=== PATIENT | male | born 1975 | race Caucasian/White ===

== ENCOUNTER 2019-10-27 21:32 | Inpatient (IN) | payer MEDICAID ==
[~2019-10-27] VITALS: Ht 188 cm; Wt 132.4 kg
[2019-10-27] MEDS ORDERED: normal saline 1000ML IV soln IV ONE (22:05)
[2019-10-27 22:54] LABS: EOSINOPHILS # (AUTO) 0.2 X10'3 (0-0.9); HEMOGLOBIN 8.9 g/dl (14.0-17.9); LYMPHOCYTES # (AUTO) 1.4 X10'3 (1.1-4.8); WHITE BLOOD COUNT 8.8 X10'3 (4.5-11.0)
[2019-10-27 22:55] LABS: BASOPHILS # (AUTO) 0.1 X10'3 (0-0.2); BASOPHILS % (AUTO) 1.4 % (0-1); HEMATOCRIT 25.4 % (42.0-52.0); MEAN CORPUSCULAR HGB CONC 35.1 g/dL (33.0-36.5); MEAN CORPUSCULAR VOLUME 108.3 FL (78-98); MEAN PLATELET VOLUME 8.8 FL (7.4-10.4); MONOCYTES % (AUTO) 11.5 % (2-12); NEUTROPHILS # (AUTO) 6.1 X10'3 (1.8-7.7); NEUTROPHILS % (AUTO) 69.1 % (42-75); PLATELET COUNT 258 X10'3 (140-440); RED BLOOD COUNT 2.34 X10'6 (4.70-6.10); RED CELL DISTRIBUTION WIDTH 14.3 % (11.5-14.5)
[2019-10-27 23:02] LABS: ALANINE AMINOTRANSFERASE 23 U/L (12-78); ALBUMIN 1.7 G/DL (3.4-5.0); ALBUMIN/GLOBULIN RATIO 0.3 (1.1-1.5); ALKALINE PHOSPHATASE 156 IU/L (46-116); ANION GAP 6 (8-16); ASPARTATE AMINO TRANSFERASE 59 U/L (10-37); BILIRUBIN,TOTAL 1.8 MG/DL (0.1-1.0); BLOOD UREA NITROGEN 11 MG/DL (7-18); BUN/CREATININE RATIO 7.1 (5.4-32.0); CALCIUM 7.7 MG/DL (8.5-10.1); CHLORIDE 98 MMOL/L (99-107); CREATININE 1.56 MG/DL (0.60-1.10); GLUCOSE 137 MG/DL (70-104); LIPASE 275 U/L (73-393); SODIUM 130 MMOL/L (135-145); TOTAL CARBON DIOXIDE 25.8 MMOL/L (24-32); TOTAL PROTEIN 7.9 G/DL (6.4-8.2); eGFR 48 ML/MIN
[2019-10-27] MEDS ORDERED: ondansetron/PF 4mg/2ml inj IV ONE (23:10)
[2019-10-27] MEDS ORDERED: AMLO5TAB PO (23:23)
[2019-10-27] MEDS ORDERED: OMEP40CA13 PO (23:29)
[2019-10-27] MEDS ORDERED: FURO-150 PO (23:29)
[2019-10-27] MEDS ORDERED: ASPI-611 PO (23:29)
[2019-10-27] MEDS ORDERED: IRBE150T51 PO (23:29)
[2019-10-27] MEDS ORDERED: TRAZ-256 PO (23:29)
[2019-10-27] MEDS ORDERED: pantoprazole IV 80 MG in normal saline 100ml IV soln 100 ML IV ONE (23:35)
[2019-10-27 23:39] LABS: PLATELET ESTIMATE NORMAL; TARGET CELLS 1+
[2019-10-27] MEDS ORDERED: pantoprazole IV 40 MG in normal saline 100ml IV soln 100 ML IV ONE (23:39)
[2019-10-27 23:40] LABS: ANISOCYTOSIS FEW; SPHEROCYTES FEW
[2019-10-27] MEDS: octreotide inj. 1,250 MCG in normal saline 250ml IV soln 250 ML IV SCH (23:57)
[2019-10-28] VITALS (12 sets, daily range): BP systolic 108–147; BP diastolic 55–90
[2019-10-28] MEDS: pantoprazole 40MG/NS 100ML BAG 100 ML IV SCH ×5 (01:00→20:45)
[2019-10-28 01:55] LABS: OCCULT BLOOD STOOL POSITIVE (Neg)
[2019-10-28 02:46] LABS: CLARITY,URINE CLEAR (Clear); GLUCOSE, URINE NEGATIVE (Neg); KETONES,URINE NEGATIVE (Neg); LEUKOCYTE ESTERASE ,URINE NEGATIVE (Neg); NITRITES, URINE NEGATIVE (Neg); OCCULT BLOOD,URINE NEGATIVE (Neg); PH,URINE 5.5 (4.8-8.0); PROTEIN,URINE NEGATIVE (Neg)
[2019-10-28 02:58] LABS: UA COLLECTION TYPE CLN CATCH MIDSTREAM
[2019-10-28 03:00] LABS: COLOR,URINE DARK YELLOW (Yellow)
[2019-10-28] MEDS ORDERED: ondansetron/PF 4mg/2ml inj IV PRN (03:25)
[2019-10-28] MEDS ORDERED: thiamine inj. 100 MG in normal saline 100ml IV soln 100 ML IV ONE ×2 (03:30→06:30)
[2019-10-28] MEDS: normal saline 1000ml 1,000 ML IV SCH ×3 (03:34→23:22)
[2019-10-28 07:16] LABS: HEMATOCRIT 25.9 % (42.0-52.0); HEMOGLOBIN 8.9 g/dl (14.0-17.9); MEAN CORPUSCULAR HEMOGLOBIN 36.8 PG (27.0-31.0); MEAN CORPUSCULAR HGB CONC 34.5 g/dL (33.0-36.5); MEAN CORPUSCULAR VOLUME 106.7 FL (78-98); MEAN PLATELET VOLUME 8.8 FL (7.4-10.4); PLATELET COUNT 228 X10'3 (140-440); RED BLOOD COUNT 2.43 X10'6 (4.70-6.10); RED CELL DISTRIBUTION WIDTH 15.6 % (11.5-14.5); WHITE BLOOD COUNT 8.6 X10'3 (4.5-11.0)
--- NOTE | 2019-10-28 08:15 | NUR ---
pt arrived to 4013A from ER. Oriented to room. Sandostatin gtt running. Protonix gtt started. Pt denies pain. c/o dry mouth and wanting to eat. Explained NPO status at this time, pt verbalized understanding. c/o some agitation and anxiety, pt states he just needs some rest for relief. Resting in bed currently with girlfriend at bedside.
[2019-10-28] MEDS: LORazepam 2 mg/ml vial IV PRN (10:14)
[2019-10-28] MEDS ORDERED: LIDOcaine Viscous 15ml cup ONE (12:35)
[2019-10-28] MEDS ORDERED: MIDAZolam 5mg/5ml vial ONE (12:35)
[2019-10-28] MEDS ORDERED: fentaNYL/PF 50MCG/1 ML 2ML syringe ONE (12:35)
--- NOTE | 2019-10-28 12:52 | NUR ---
Paged Dr. Burris - pt chews tobacco at home and requesting Nicotine patch please.
--- NOTE | 2019-10-28 14:59 | NUR ---
pt transferred to 3021 from GI lab. Report called to ALICE Jones for continuation of care.
--- NOTE | 2019-10-28 15:00 | NUR ---
Received report from Shea on Ortho/Neuro, patient arrived from GI lab by sunny, transferred to PCU bed with assistance. Alert and oriented to room, call light within reach, first set of vital signs complete, 2 RN skin check complete, all patient needs met at this time.
[2019-10-28] MEDS ORDERED: pantoprazole 40MG/NS 100ML BAG 100 ML IV SCH ×3 (16:07→16:15)
[2019-10-28] MEDS: octreotide inj. 1,250 MCG in normal saline 250ml IV soln 250 ML IV SCH (16:17)
[2019-10-28 16:41] LABS: HEMATOCRIT 24.7 % (42.0-52.0); HEMOGLOBIN 8.7 g/dl (14.0-17.9); MEAN CORPUSCULAR HEMOGLOBIN 37.3 PG (27.0-31.0); MEAN CORPUSCULAR VOLUME 106.8 FL (78-98); MEAN PLATELET VOLUME 8.5 FL (7.4-10.4); PLATELET COUNT 237 X10'3 (140-440); RED BLOOD COUNT 2.32 X10'6 (4.70-6.10); RED CELL DISTRIBUTION WIDTH 15.3 % (11.5-14.5); WHITE BLOOD COUNT 8.2 X10'3 (4.5-11.0)
--- NOTE | 2019-10-28 18:40 | NUR ---
Problems reprioritized. Patient report given, questions answered & plan of care reviewed with Miko RN. All patient needs have been met at this time.
[2019-10-28] MEDS ORDERED: traZODone 50mg tablet PO SCH ×2 (21:00→23:05)
--- NOTE | 2019-10-28 21:57 | NUR ---
NOTIFIED PAGER ID: [phone] MESSAGE: Joel Ramos, 3025- pt refused 100mg dose of trazodone and requests 25mg dose. pt requests nicotine patch, melatonin for sleep, and medication for pain currently 03/17 in back. Miko JENKINS
[2019-10-28] MEDS: traZODone 50mg tablet PO SCH (23:05)
[2019-10-28 23:10] LABS: HEMATOCRIT 22.8 % (42.0-52.0); MEAN CORPUSCULAR HEMOGLOBIN 37.4 PG (27.0-31.0); MEAN CORPUSCULAR HGB CONC 34.9 g/dL (33.0-36.5); MEAN CORPUSCULAR VOLUME 107.2 FL (78-98); MEAN PLATELET VOLUME 8.9 FL (7.4-10.4); PLATELET COUNT 216 X10'3 (140-440); RED BLOOD COUNT 2.12 X10'6 (4.70-6.10); RED CELL DISTRIBUTION WIDTH 15.1 % (11.5-14.5); WHITE BLOOD COUNT 11.5 X10'3 (4.5-11.0)
[2019-10-28] MEDS: nicotine 14mg patch - 24hr TD SCH (23:19)
[2019-10-28] MEDS: acetaminophen 325mg tablet PO PRN (23:21)
[2019-10-28] MEDS: Melatonin 3mg tablet PO PRN (23:23)
[2019-10-29] VITALS (9 sets, daily range): BP systolic 105–125; BP diastolic 63–84
[2019-10-29] MEDS: pantoprazole 40MG/NS 100ML BAG 100 ML IV SCH ×5 (04:37→21:00)
[2019-10-29 05:49] LABS: BASOPHILS # (AUTO) 0.1 X10'3 (0-0.2); BASOPHILS % (AUTO) 1.2 % (0-1); EOSINOPHILS # (AUTO) 0.3 X10'3 (0-0.9); EOSINOPHILS % (AUTO) 3.3 % (0-6); HEMOGLOBIN 7.3 g/dl (14.0-17.9); LYMPHOCYTES # (AUTO) 1.7 X10'3 (1.1-4.8); LYMPHOCYTES % (AUTO) 19.5 % (21-51); MEAN CORPUSCULAR HEMOGLOBIN 37.5 PG (27.0-31.0); MEAN CORPUSCULAR HGB CONC 35.2 g/dL (33.0-36.5); MEAN CORPUSCULAR VOLUME 106.6 FL (78-98); MONOCYTES % (AUTO) 10.9 % (2-12); NEUTROPHILS # (AUTO) 5.7 X10'3 (1.8-7.7); NEUTROPHILS % (AUTO) 65.1 % (42-75); PLATELET COUNT 194 X10'3 (140-440); RED BLOOD COUNT 1.96 X10'6 (4.70-6.10); RED CELL DISTRIBUTION WIDTH 15.1 % (11.5-14.5); WHITE BLOOD COUNT 8.8 X10'3 (4.5-11.0)
[2019-10-29 05:52] LABS: HEMATOCRIT 20.9 % (42.0-52.0)
--- NOTE | 2019-10-29 05:57 | NUR ---
NOTIFIED PAGER ID: [phone] MESSAGE: Joel Ramos, 3020- critical value HCT 20.9, with HGB 7.3, RBC 1.96 Miko JENKINS
[2019-10-29 06:14] LABS: ALANINE AMINOTRANSFERASE 21 U/L (12-78); ALBUMIN 1.5 G/DL (3.4-5.0); ALBUMIN/GLOBULIN RATIO 0.3 (1.1-1.5); ALKALINE PHOSPHATASE 116 IU/L (46-116); ANION GAP 5 (8-16); ASPARTATE AMINO TRANSFERASE 50 U/L (10-37); BILIRUBIN,TOTAL 2.7 MG/DL (0.1-1.0); BLOOD UREA NITROGEN 11 MG/DL (7-18); BUN/CREATININE RATIO 7.7 (5.4-32.0); CALCIUM 7.3 MG/DL (8.5-10.1); CHLORIDE 103 MMOL/L (99-107); CREATININE 1.42 MG/DL (0.60-1.10); GLUCOSE 112 MG/DL (70-104); POTASSIUM 4.8 MMOL/L (3.5-5.1); SODIUM 135 MMOL/L (135-145); TOTAL CARBON DIOXIDE 26.7 MMOL/L (24-32); TOTAL PROTEIN 6.7 G/DL (6.4-8.2); eGFR 54 ML/MIN
--- NOTE | 2019-10-29 06:21 | NUR ---
Problems reprioritized. Patient report given, questions answered & plan of care reviewed with Brenda Orona RN.
--- NOTE | 2019-10-29 06:37 | NUR ---
Patient in room PCU 3021. I have received report from ALICE Crouch and had the opportunity to ask questions and assume patient care. Patient asleep in bed and in no acute distress.
--- NOTE | 2019-10-29 07:14 | NUR ---
Patient refused 0700 vitals.
[2019-10-29] MEDS: nicotine 14mg patch - 24hr TD SCH (08:00)
[2019-10-29] MEDS: acetaminophen 325mg tablet PO PRN ×2 (08:15→14:17)
--- NOTE | 2019-10-29 08:54 | NUR ---
Order edited for [email or web address] q5hr to be continuous per Dr. Burris.
[2019-10-29] MEDS: normal saline 1000ml 1,000 ML IV SCH ×2 (09:22→19:22)
--- NOTE | 2019-10-29 10:03 | NUR ---
Paged Dr. Burrsi for blood culture order. PAGER ID: [phone] MESSAGE: [phone]. Joel Ramos. Would you like for me to order blood cultures before giving rocephin? Thanks! Brenda JENKINS x [phone]
[2019-10-29 11:21] LABS: HEMOGLOBIN 7.4 g/dl (14.0-17.9); MEAN CORPUSCULAR HEMOGLOBIN 37.6 PG (27.0-31.0); MEAN CORPUSCULAR HGB CONC 35.1 g/dL (33.0-36.5); PLATELET COUNT 189 X10'3 (140-440); RED BLOOD COUNT 1.98 X10'6 (4.70-6.10); RED CELL DISTRIBUTION WIDTH 14.8 % (11.5-14.5); WHITE BLOOD COUNT 8.2 X10'3 (4.5-11.0)
[2019-10-29 11:23] LABS: HEMATOCRIT 21.2 % (42.0-52.0)
--- NOTE | 2019-10-29 11:26 | NUR ---
Paged Dr. Burris regarding critical lab values. PAGER ID: [phone] MESSAGE: [phone]. Joel Ramos. Critical lab Hgb 7.4, Hct 21.2. Blood transfusion in progress. Thank you. Brenda JENKINS x [phone]
[2019-10-29] MEDS: CefTRIAXone 2gm/D5W 50ml 50 ML IV SCH (14:18)
[2019-10-29 16:46] LABS: HEMATOCRIT 25.2 % (42.0-52.0); HEMOGLOBIN 8.8 g/dl (14.0-17.9); MEAN CORPUSCULAR HEMOGLOBIN 36.8 PG (27.0-31.0); PLATELET COUNT 203 X10'3 (140-440); RED CELL DISTRIBUTION WIDTH 17.3 % (11.5-14.5); WHITE BLOOD COUNT 9.8 X10'3 (4.5-11.0)
--- NOTE | 2019-10-29 18:33 | NUR ---
Problems reprioritized. Patient report given, questions answered & plan of care reviewed with ALICE Rosas. Patient stable at transfer of care.
--- NOTE | 2019-10-29 18:33 | NUR ---
Patient in room PCU 3021. I have received report from ALICE Gutierrez and had the opportunity to ask questions and assume patient care.
[2019-10-29] MEDS: LORazepam 2 mg/ml vial IV PRN (20:42)
[2019-10-29] MEDS: traZODone 50mg tablet PO SCH (21:00)
[2019-10-29 22:51] LABS: HEMATOCRIT 23.6 % (42.0-52.0); HEMOGLOBIN 8.4 g/dl (14.0-17.9); MEAN CORPUSCULAR HEMOGLOBIN 37.5 PG (27.0-31.0); MEAN CORPUSCULAR HGB CONC 35.6 g/dL (33.0-36.5); MEAN CORPUSCULAR VOLUME 105.3 FL (78-98); MEAN PLATELET VOLUME 9.1 FL (7.4-10.4); PLATELET COUNT 188 X10'3 (140-440); RED BLOOD COUNT 2.24 X10'6 (4.70-6.10); WHITE BLOOD COUNT 9.8 X10'3 (4.5-11.0)
[2019-10-30] VITALS (7 sets, daily range): BP systolic 119–128; BP diastolic 65–81
[2019-10-30] MEDS: pantoprazole 40MG/NS 100ML BAG 100 ML IV SCH ×5 (00:57→21:28)
[2019-10-30] MEDS: octreotide inj. 1,250 MCG in normal saline 250ml IV soln 250 ML IV SCH (00:58)
[2019-10-30] MEDS: normal saline 1000ml 1,000 ML IV SCH ×2 (00:58→15:25)
[2019-10-30] MEDS: acetaminophen 325mg tablet PO PRN ×4 (01:13→21:51)
[2019-10-30] MEDS ORDERED: LORazepam 2 mg/ml vial IV PRN (03:30)
[2019-10-30] MEDS ORDERED: LORazepam 1 MG tablet PO PRN (03:30)
[2019-10-30 05:39] LABS: BASOPHILS # (AUTO) 0.1 X10'3 (0-0.2); BASOPHILS % (AUTO) 1.1 % (0-1); EOSINOPHILS # (AUTO) 0.3 X10'3 (0-0.9); EOSINOPHILS % (AUTO) 3.5 % (0-6); HEMATOCRIT 22.9 % (42.0-52.0); LYMPHOCYTES # (AUTO) 1.4 X10'3 (1.1-4.8); LYMPHOCYTES % (AUTO) 14.6 % (21-51); MEAN CORPUSCULAR HEMOGLOBIN 36.5 PG (27.0-31.0); MEAN CORPUSCULAR HGB CONC 34.7 g/dL (33.0-36.5); MEAN CORPUSCULAR VOLUME 105.1 FL (78-98); MEAN PLATELET VOLUME 9.2 FL (7.4-10.4); MONOCYTES # (AUTO) 0.9 X10'3 (0-0.9); MONOCYTES % (AUTO) 8.8 % (2-12); NEUTROPHILS # (AUTO) 7.1 X10'3 (1.8-7.7); PLATELET COUNT 182 X10'3 (140-440); RED BLOOD COUNT 2.18 X10'6 (4.70-6.10); RED CELL DISTRIBUTION WIDTH 16.7 % (11.5-14.5); WHITE BLOOD COUNT 9.8 X10'3 (4.5-11.0)
[2019-10-30 05:50] LABS: ALANINE AMINOTRANSFERASE 17 U/L (12-78); ALBUMIN 1.4 G/DL (3.4-5.0); ALBUMIN/GLOBULIN RATIO 0.3 (1.1-1.5); ALKALINE PHOSPHATASE 110 IU/L (46-116); ANION GAP 6 (8-16); ASPARTATE AMINO TRANSFERASE 48 U/L (10-37); BILIRUBIN,TOTAL 2.4 MG/DL (0.1-1.0); BLOOD UREA NITROGEN 11 MG/DL (7-18); CALCIUM 7.2 MG/DL (8.5-10.1); CHLORIDE 106 MMOL/L (99-107); CREATININE 1.37 MG/DL (0.60-1.10); GLUCOSE 89 MG/DL (70-104); POTASSIUM 4.7 MMOL/L (3.5-5.1); SODIUM 138 MMOL/L (135-145); TOTAL CARBON DIOXIDE 25.9 MMOL/L (24-32); TOTAL PROTEIN 6.6 G/DL (6.4-8.2); eGFR 56 ML/MIN
--- NOTE | 2019-10-30 06:49 | NUR ---
Patient in room PCU 3021. I have received report from ALICE Gandhi and had the opportunity to ask questions and assume patient care.
--- NOTE | 2019-10-30 06:52 | NUR ---
Problems reprioritized. Patient report given, questions answered & plan of care reviewed with ALICE Clark. Patient stable at shift change.
[2019-10-30] MEDS: CefTRIAXone 2gm/D5W 50ml 50 ML IV SCH (07:22)
[2019-10-30] MEDS: nicotine 14mg patch - 24hr TD SCH (08:00)
--- NOTE | 2019-10-30 09:33 | NUR ---
New orders from Dr. Burris for a paracentesis, discontinue Shaheen and Protonix gtt after 48 hours and to switch Protonix gtt to 40mg PO BID
[2019-10-30 10:53] LABS: HEMATOCRIT 25.4 % (42.0-52.0); HEMOGLOBIN 8.7 g/dl (14.0-17.9); MEAN CORPUSCULAR HEMOGLOBIN 36.2 PG (27.0-31.0); MEAN CORPUSCULAR HGB CONC 34.4 g/dL (33.0-36.5); MEAN PLATELET VOLUME 8.9 FL (7.4-10.4); PLATELET COUNT 199 X10'3 (140-440); RED BLOOD COUNT 2.42 X10'6 (4.70-6.10); RED CELL DISTRIBUTION WIDTH 16.6 % (11.5-14.5); WHITE BLOOD COUNT 9.8 X10'3 (4.5-11.0)
[2019-10-30] MEDS: albumin (human) 25% 100 ML IV solution IV ONE ×2 (13:30→13:31)
[2019-10-30 17:14] LABS: HEMATOCRIT 24.8 % (42.0-52.0); HEMOGLOBIN 8.4 g/dl (14.0-17.9); MEAN CORPUSCULAR HEMOGLOBIN 35.7 PG (27.0-31.0); MEAN PLATELET VOLUME 9.2 FL (7.4-10.4); PLATELET COUNT 187 X10'3 (140-440); RED BLOOD COUNT 2.36 X10'6 (4.70-6.10); RED CELL DISTRIBUTION WIDTH 16.5 % (11.5-14.5); WHITE BLOOD COUNT 11.2 X10'3 (4.5-11.0)
--- NOTE | 2019-10-30 18:20 | NUR ---
Problems reprioritized. Patient report given, questions answered & plan of care reviewed with Miko RN.
--- NOTE | 2019-10-30 18:30 | NUR ---
Patient in room PCU 3021. I have received report from Amber JENKINS and had the opportunity to ask questions and assume patient care.
[2019-10-30] MEDS: traZODone 50mg tablet PO SCH (21:00)
[2019-10-30] MEDS: Melatonin 3mg tablet PO PRN (21:28)
[2019-10-30 22:55] LABS: HEMATOCRIT 22.3 % (42.0-52.0); HEMOGLOBIN 7.8 g/dl (14.0-17.9); MEAN CORPUSCULAR HGB CONC 35.2 g/dL (33.0-36.5); MEAN PLATELET VOLUME 9.1 FL (7.4-10.4); PLATELET COUNT 166 X10'3 (140-440); RED BLOOD COUNT 2.12 X10'6 (4.70-6.10); RED CELL DISTRIBUTION WIDTH 16.2 % (11.5-14.5); WHITE BLOOD COUNT 10.8 X10'3 (4.5-11.0)
[2019-10-31] MEDS: normal saline 1000ml 1,000 ML IV SCH ×2 (01:13→11:22)
[2019-10-31 02:00] VITALS: BP 117/66
[2019-10-31] MEDS: pantoprazole 40MG/NS 100ML BAG 100 ML IV SCH ×2 (04:24→08:05)
[2019-10-31 05:27] LABS: BASOPHILS # (AUTO) 0.1 X10'3 (0-0.2); BASOPHILS % (AUTO) 1.1 % (0-1); EOSINOPHILS # (AUTO) 0.3 X10'3 (0-0.9); EOSINOPHILS % (AUTO) 3.7 % (0-6); LYMPHOCYTES # (AUTO) 1.7 X10'3 (1.1-4.8); LYMPHOCYTES % (AUTO) 18.3 % (21-51); MEAN CORPUSCULAR HEMOGLOBIN 36.2 PG (27.0-31.0); MEAN CORPUSCULAR HGB CONC 34.5 g/dL (33.0-36.5); MEAN CORPUSCULAR VOLUME 104.9 FL (78-98); MEAN PLATELET VOLUME 9.3 FL (7.4-10.4); MONOCYTES # (AUTO) 0.7 X10'3 (0-0.9); MONOCYTES % (AUTO) 7.8 % (2-12); NEUTROPHILS # (AUTO) 6.3 X10'3 (1.8-7.7); NEUTROPHILS % (AUTO) 69.1 % (42-75); PLATELET COUNT 163 X10'3 (140-440); WHITE BLOOD COUNT 9.1 X10'3 (4.5-11.0)
[2019-10-31 06:06] LABS: ALANINE AMINOTRANSFERASE 14 U/L (12-78); ALBUMIN/GLOBULIN RATIO 0.5 (1.1-1.5); ALKALINE PHOSPHATASE 101 IU/L (46-116); ANION GAP 8 (8-16); ASPARTATE AMINO TRANSFERASE 37 U/L (10-37); BILIRUBIN,TOTAL 1.9 MG/DL (0.1-1.0); BLOOD UREA NITROGEN 8 MG/DL (7-18); BUN/CREATININE RATIO 6.8 (5.4-32.0); CALCIUM 7.3 MG/DL (8.5-10.1); CHLORIDE 108 MMOL/L (99-107); CREATININE 1.17 MG/DL (0.60-1.10); GLUCOSE 83 MG/DL (70-104); POTASSIUM 4.1 MMOL/L (3.5-5.1); SODIUM 141 MMOL/L (135-145); TOTAL PROTEIN 6.4 G/DL (6.4-8.2); eGFR 67 ML/MIN
--- NOTE | 2019-10-31 06:10 | NUR ---
Problems reprioritized. Patient report given, questions answered & plan of care reviewed with Brenda Orona RN.
[2019-10-31 07:00] VITALS: BP 123/68
[2019-10-31] MEDS: nicotine 14mg patch - 24hr TD SCH (08:00)
[2019-10-31] MEDS: CefTRIAXone 2gm/D5W 50ml 50 ML IV SCH (08:05)
--- NOTE | 2019-10-31 10:07 | NUR ---
Per Dr. Burris's miscellaneous nursing order, Protonix gtt to be stopped and started on PO Protonix 40mg BID. Order entered.
[2019-10-31 11:00] VITALS: BP 115/62
[2019-10-31] MEDS ORDERED: NICO-631 TD (11:25)
[2019-10-31] MEDS ORDERED: CIPR-230 PO (11:25)
[2019-10-31] MEDS ORDERED: MULT-933 PO (11:25)
--- NOTE | 2019-10-31 13:50 | NUR ---
Patient stable for discharge per MD orders. All discharge instructions reviewed and all questions answered. New prescriptions were called in to [facility]. Patient following up with PCP next week at some time. PIV discontinued and cannula intact. monitoring coordinator discontinued. Patient left via private vehicle and was wheeled down to the lobby.
[2019-10-31] MEDS ORDERED: pantoprazole 40mg Tablet.DR PO SCH (20:00)
[2019-11-01] MEDS ORDERED: LORazepam 2 mg/ml vial IV PRN (03:30)
== END 2019-10-31 13:50 | disposition home or self-care (01) ==
LOC: ER 21:32 → ED HOLD 10-28 03:22 → ORTHO 4S 10-28 07:15 → PCU 3S 10-28 15:12
PROVIDERS: ADMIT Internal Medicine; ATTEND Internal Medicine
PROC: 06L38CZ Occlusion of Esophageal Vein with Extraluminal Device, Via Natural or Artificial Opening Endoscopic (ICD-10-PCS; principal; 2019-10-28)
PROC: 30233N1 Transfusion of Nonautologous Red Blood Cells into Peripheral Vein, Percutaneous Approach (ICD-10-PCS; 2019-10-28)
PROC: 0W9G3ZZ Drainage of Peritoneal Cavity, Percutaneous Approach (ICD-10-PCS; 2019-10-30)
DX: K74.60 Unspecified cirrhosis of liver (principal); I85.11 Secondary esophageal varices with bleeding; K92.0 Hematemesis; K76.6 Portal hypertension; R18.8 Other ascites; D62 Acute posthemorrhagic anemia; F10.20 Alcohol dependence, uncomplicated; I10 Essential (primary) hypertension; K76.0 Fatty (change of) liver, not elsewhere classified; K44.9 Diaphragmatic hernia without obstruction or gangrene; K22.8 Other specified diseases of esophagus; K31.89 Other diseases of stomach and duodenum; Z79.82 Long term (current) use of aspirin; Z72.0 Tobacco use; Z71.41 Alcohol abuse counseling and surveillance of alcoholic
CPT/HCPCS: 36415; 43244; 43255; 49083; 71045; 74176; 76937; 80053; 81003; 82272; 83690; 85025; 85027; 85610; 86885; 86900; 86901; 86920; 87081; 99152; 99153; A4620; C9113; G0378; J0696; J2060; J2250; J2354; J2405; J3010; J3411; J7030; J7040; J7050; P9016; P9047

== ENCOUNTER 2019-11-04 20:56 | Emergency (ER) | payer MEDICAID ==
[~2019-11-04] VITALS: Ht 188 cm; Wt 96.6 kg
[~2019-11-04 20:56] MED LIST: AMLO5TAB PO; CIPR-230 PO; FURO-150 PO; IRBE150T51 PO; MULT-933 PO; NICO-631 TD; OMEP40CA13 PO; TRAZ-256 PO
[2019-11-04 22:58] LABS: BASOPHILS # (AUTO) 0.1 X10'3 (0-0.2); BASOPHILS % (AUTO) 1.3 % (0-1); EOSINOPHILS # (AUTO) 0.2 X10'3 (0-0.9); EOSINOPHILS % (AUTO) 2.3 % (0-6); HEMATOCRIT 26.5 % (42.0-52.0); HEMOGLOBIN 9.2 g/dl (14.0-17.9); LYMPHOCYTES # (AUTO) 1.1 X10'3 (1.1-4.8); LYMPHOCYTES % (AUTO) 12.5 % (21-51); MEAN CORPUSCULAR HEMOGLOBIN 36.5 PG (27.0-31.0); MEAN CORPUSCULAR HGB CONC 34.6 g/dL (33.0-36.5); MEAN CORPUSCULAR VOLUME 105.5 FL (78-98); MEAN PLATELET VOLUME 8.9 FL (7.4-10.4); MONOCYTES # (AUTO) 1.2 X10'3 (0-0.9); MONOCYTES % (AUTO) 12.7 % (2-12); NEUTROPHILS # (AUTO) 6.6 X10'3 (1.8-7.7); NEUTROPHILS % (AUTO) 71.2 % (42-75); PLATELET COUNT 204 X10'3 (140-440); RED BLOOD COUNT 2.51 X10'6 (4.70-6.10); RED CELL DISTRIBUTION WIDTH 16.2 % (11.5-14.5); WHITE BLOOD COUNT 9.2 X10'3 (4.5-11.0)
[2019-11-04 23:04] LABS: ALANINE AMINOTRANSFERASE 17 U/L (12-78); ALBUMIN 2.1 G/DL (3.4-5.0); ALBUMIN/GLOBULIN RATIO 0.4 (1.1-1.5); ALKALINE PHOSPHATASE 141 IU/L (46-116); ANION GAP 7 (8-16); ASPARTATE AMINO TRANSFERASE 50 U/L (10-37); BILIRUBIN,TOTAL 1.7 MG/DL (0.1-1.0); BLOOD UREA NITROGEN 10 MG/DL (7-18); BUN/CREATININE RATIO 7.1 (5.4-32.0); CALCIUM 8.5 MG/DL (8.5-10.1); CHLORIDE 106 MMOL/L (99-107); CREATININE 1.41 MG/DL (0.60-1.10); GLUCOSE 112 MG/DL (70-104); LIPASE 456 U/L (73-393); POTASSIUM 3.9 MMOL/L (3.5-5.1); SODIUM 138 MMOL/L (135-145); TOTAL CARBON DIOXIDE 24.8 MMOL/L (24-32); TOTAL PROTEIN 7.3 G/DL (6.4-8.2); eGFR 54 ML/MIN
[2019-11-04] MEDS ORDERED: pantoprazole 40 MG vial IV ONE (23:10)
[2019-11-05] MEDS ORDERED: SUCR1TAB34 PO (01:13)
[2019-11-05 01:25] VITALS: BP 119/76
== END 2019-11-05 01:26 | disposition home or self-care (01) ==
LOC: ER 20:57
DX: D64.9 Anemia, unspecified (principal); R06.2 Wheezing; K92.1 Melena; R05 Cough; I10 Essential (primary) hypertension; Z72.0 Tobacco use; Z79.899 Other long term (current) drug therapy
CPT/HCPCS: 36415; 80053; 83690; 85025; 85610; 96374; 99283; C9113

== ENCOUNTER 2019-12-01 08:25 | Day surgery (SDC) | payer MEDICAID ==
[~2019-12-01] VITALS: Ht 188 cm; Wt 110.0 kg
[~2019-12-01 08:25] MED LIST changes: +SUCR1TAB34 PO
[2019-12-01] MEDS ORDERED: fentaNYL/PF 50MCG/1 ML 2ML syringe ONE (08:36)
[2019-12-01] MEDS ORDERED: MIDAZolam 5mg/5ml vial ONE (08:36)
[2019-12-01] MEDS ORDERED: LIDOcaine Viscous 15ml cup ONE (08:36)
[2019-12-01 08:37] VITALS: BP 117/74
[2019-12-01] MEDS ORDERED: SPIR25TA5 PO (09:00)
[2019-12-01] MEDS ORDERED: DIPH25CA83 PO (09:02)
[2019-12-01 09:42] VITALS: BP 113/67
[2019-12-01 09:52] VITALS: BP 107/58
[2019-12-01 10:02] VITALS: BP 104/63
== END 2019-12-01 10:13 | disposition home or self-care (01) ==
LOC: GI LAB 08:25
PROVIDERS: ATTEND Internal Medicine Gastroenterology
DX: I85.00 Esophageal varices without bleeding (principal); K76.6 Portal hypertension; K31.89 Other diseases of stomach and duodenum; K44.9 Diaphragmatic hernia without obstruction or gangrene; K22.8 Other specified diseases of esophagus; K20.8 Other esophagitis; K22.70 Barrett's esophagus without dysplasia; Z79.899 Other long term (current) drug therapy
CPT/HCPCS: 43239; 43244; 99152; J2250; J3010; J7040; 99153; A4620

== ENCOUNTER 2020-02-27 18:52 | Emergency (ER) | payer MEDICAID ==
[~2020-02-27] VITALS: Ht 188 cm; Wt 104.3 kg
[~2020-02-27 18:52] MED LIST changes: -AMLO5TAB PO; -CIPR-230 PO; +DIPH25CA83 PO; +SPIR25TA5 PO; -SUCR1TAB34 PO; -TRAZ-256 PO
[2020-02-27 18:57] VITALS: BP 125/74
[2020-02-27 20:34] LABS: BASOPHILS # (AUTO) 0.1 X10'3 (0-0.2); BASOPHILS % (AUTO) 0.6 % (0-1); EOSINOPHILS # (AUTO) 0.2 X10'3 (0-0.9); EOSINOPHILS % (AUTO) 2.7 % (0-6); HEMATOCRIT 29.3 % (42.0-52.0); HEMOGLOBIN 9.8 g/dl (14.0-17.9); LYMPHOCYTES # (AUTO) 2.1 X10'3 (1.1-4.8); LYMPHOCYTES % (AUTO) 23.5 % (21-51); MEAN CORPUSCULAR HEMOGLOBIN 32.3 PG (27.0-31.0); MEAN CORPUSCULAR HGB CONC 33.5 g/dL (33.0-36.5); MEAN CORPUSCULAR VOLUME 96.3 FL (78-98); MEAN PLATELET VOLUME 8.5 FL (7.4-10.4); MONOCYTES # (AUTO) 0.9 X10'3 (0-0.9); MONOCYTES % (AUTO) 10.2 % (2-12); NEUTROPHILS # (AUTO) 5.7 X10'3 (1.8-7.7); PLATELET COUNT 233 X10'3 (140-440); RED BLOOD COUNT 3.04 X10'6 (4.70-6.10); RED CELL DISTRIBUTION WIDTH 16.4 % (11.5-14.5); WHITE BLOOD COUNT 9.1 X10'3 (4.5-11.0)
== END 2020-02-27 23:07 | disposition home or self-care (01) ==
LOC: ER 18:55
DX: K64.8 Other hemorrhoids (principal); I10 Essential (primary) hypertension; Z88.5 Allergy status to narcotic agent; Z79.899 Other long term (current) drug therapy
CPT/HCPCS: 36415; 85025; 99283

== ENCOUNTER 2021-02-14 09:48 | Emergency (ER) | payer MEDICAID ==
[~2021-02-14] VITALS: Ht 188 cm; Wt 119.7 kg
[2021-02-14] MEDS ORDERED: LIDOcaine 1% W/epiNEPHrine 1:200,000 10ml vial IJ ONE (12:05)
[2021-02-14] MEDS ORDERED: bacitracin 15gm ointment TP ONE (12:05)
[2021-02-14] MEDS ORDERED: TETanus/Pertussis (Acell)/Diphther VAC/PF (Tdap-Adult) 0.5ml syringe IMVAC ONE (12:05)
[2021-02-14] MEDS ORDERED: AMOX-422 PO (13:00)
[2021-02-14 13:09] VITALS: BP 130/60
== END 2021-02-14 13:17 | disposition home or self-care (01) ==
LOC: ER 09:49
DX: S01.511A Laceration without foreign body of lip, initial encounter (principal); I10 Essential (primary) hypertension; Z86.2 Personal history of diseases of the blood and blood-forming organs and certain disorders involving the immune mechanism; Z72.89 Other problems related to lifestyle; Z20.3 Contact with and (suspected) exposure to rabies; Z88.8 Allergy status to other drugs, medicaments and biological substances; Z79.2 Long term (current) use of antibiotics; Z79.899 Other long term (current) drug therapy; W54.0XXA Bitten by dog, initial encounter; Y93.89 Activity, other specified; Y92.89 Other specified places as the place of occurrence of the external cause; Y99.8 Other external cause status
CPT/HCPCS: 12004; 12011; 40650; 90471; 90715; 97597; 99283; 99284

== ENCOUNTER 2022-12-17 19:26 | Emergency (ER) | payer MEDICAID ==
[~2022-12-17] VITALS: Ht 188 cm; Wt 118.2 kg
[~2022-12-17 19:26] MED LIST changes: -OMEP40CA13 PO; +OMEP40CA21 PO
[2022-12-17 19:33] VITALS: BP 157/75
[2022-12-17 19:47] LABS: BASOPHILS # (AUTO) 0.1 X10'3 (0-0.2); BASOPHILS % (AUTO) 0.7 % (0-1); EOSINOPHILS # (AUTO) 0.3 X10'3 (0-0.9); EOSINOPHILS % (AUTO) 3.6 % (0-6); HEMATOCRIT 33.9 % (42.0-52.0); HEMOGLOBIN 11.5 g/dl (14.0-17.9); LYMPHOCYTES # (AUTO) 2.7 X10'3 (1.1-4.8); LYMPHOCYTES % (AUTO) 29.5 % (21-51); MEAN CORPUSCULAR HEMOGLOBIN 32.2 PG (27.0-31.0); MEAN CORPUSCULAR HGB CONC 33.7 g/dL (33.0-36.5); MEAN CORPUSCULAR VOLUME 95.3 FL (78-98); MEAN PLATELET VOLUME 7.8 FL (7.4-10.4); MONOCYTES # (AUTO) 0.9 X10'3 (0-0.9); MONOCYTES % (AUTO) 9.9 % (2-12); NEUTROPHILS # (AUTO) 5.1 X10'3 (1.8-7.7); NEUTROPHILS % (AUTO) 56.3 % (42-75); PLATELET COUNT 242 X10'3 (140-440); RED BLOOD COUNT 3.56 X10'6 (4.70-6.10); RED CELL DISTRIBUTION WIDTH 14.7 % (11.5-14.5)
[2022-12-17 20:04] LABS: ALANINE AMINOTRANSFERASE 45 U/L (12-78); ALBUMIN 4.1 G/DL (3.4-5.0); ALBUMIN/GLOBULIN RATIO 1.3 (1.1-1.5); ALKALINE PHOSPHATASE 77 IU/L (46-116); ANION GAP 9 (8-16); ASPARTATE AMINO TRANSFERASE 51 U/L (10-37); BILIRUBIN,TOTAL 0.5 MG/DL (0.1-1.0); BLOOD UREA NITROGEN 27 MG/DL (7-18); BUN/CREATININE RATIO 22.3 (5.4-32.0); CHLORIDE 106 MMOL/L (99-107); CREATININE 1.21 MG/DL (0.60-1.10); GLUCOSE 119 MG/DL (70-104); MAGNESIUM 1.3 MG/DL (1.5-2.4); POTASSIUM 3.9 MMOL/L (3.5-5.1); SODIUM 140 MMOL/L (135-145); TOTAL CARBON DIOXIDE 24.7 MMOL/L (24-32); TOTAL PROTEIN 7.2 G/DL (6.4-8.2); eGFR 64 ML/MIN
[2022-12-17] MEDS ORDERED: LIDO700A32 TOP (23:06)
== END 2022-12-17 23:11 | disposition home or self-care (01) ==
LOC: ER 19:26
DX: R07.9 Chest pain, unspecified (principal); I10 Essential (primary) hypertension; Z86.2 Personal history of diseases of the blood and blood-forming organs and certain disorders involving the immune mechanism; Z88.5 Allergy status to narcotic agent; Z79.899 Other long term (current) drug therapy
CPT/HCPCS: 36415; 71045; 80053; 83735; 83880; 84484; 85025; 93005; 99285